=== PATIENT | male | born 1980 | race Caucasian/White ===

== ENCOUNTER 2020-12-16 14:34 | Emergency (ER) | payer OTHER ==
[~2020-12-16] VITALS: Ht 177.8 cm; Wt 85.7 kg
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
[2020-12-16] MEDS ORDERED: CENTANY30 GM TOP (16:17)
[2020-12-16] MEDS ORDERED: DOXYCYCLINE 10100 MG PO (16:17)
[2020-12-16 17:46] VITALS: BP 160/91
--- NOTE | 2020-12-17 07:09 | EKG ---
[place] [address] [facility] [place] [address] ELECTROCARDIOGRAM REPORT Name: MOUNA DAS [id number] Admission: 12/16/20 Attend Phys: Discharge: 12/16/20 Date of : [birth year] Report #: [id number] [facility] ED Test Date: 2020-12-16 Test Time: 15:55:28 Pat Name: MOUNA DAS Department: Room: Gender: Typing Office Worker: TIFFANIE : 1980 Requested By: Chidi Mclain Order Number: [id number] MD: Leopoldo Cleaning Measurements Intervals [place] Rate: 126 P: 78 PA: 165 QRS: 82 QRSD: 90 T: -57 QT: 309 QTc: 448 Interpretive Statements Sinus tachycardia Probable left ventricular hypertrophy Nonspecific T abnormalities, inferior leads Baseline wander in lead(s) V2 No previous ECG available for comparison Electronically Signed On 12-17-2020 7:09:17 CDT by Leopoldo Cleaning [email or web address] <ELECTRONICALLY SIGNED> By: Leopoldo Cleaning MD, [facility] 12/17/20 0709 [id number] 1555 Leopoldo Cleaning MD, FACC /EPI
== END 2020-12-16 17:46 | disposition home or self-care (01) ==
LOC: ER 14:34
DX: R21 Rash and other nonspecific skin eruption (principal); L02.512 Cutaneous abscess of left hand; F41.9 Anxiety disorder, unspecified; Z90.89 Acquired absence of other organs; Z88.2 Allergy status to sulfonamides